=== PATIENT | male | born 2000 | race African-American/Black ===

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

== ENCOUNTER 2019-01-08 20:31 | Emergency (ER) | payer BC ==
[~2019-01-08] VITALS: Ht 175.3 cm; Wt 81.7 kg
[2019-01-08] MEDS ORDERED: TESSALON PERLE100 MG PO (22:02)
[2019-01-08 22:38] VITALS: BP 138/76
== END 2019-01-08 22:35 | disposition home or self-care (01) ==
LOC: ER 20:31
DX: J06.9 Acute upper respiratory infection, unspecified (principal)

== ENCOUNTER 2019-02-06 18:06 | Emergency (ER) | payer BC ==
[~2019-02-06] VITALS: Ht 175.3 cm; Wt 81.7 kg
[2019-02-06 19:40] VITALS: BP 130/91
== END 2019-02-06 19:40 | disposition home or self-care (01) ==
LOC: ER 18:06
DX: H92.02 Otalgia, left ear (principal)

== ENCOUNTER 2019-02-10 02:27 | Emergency (ER) | payer BC ==
[~2019-02-10] VITALS: Ht 175.3 cm; Wt 81.7 kg
[2019-02-10] MEDS ORDERED: MOBIC15 MG PO (03:25)
[2019-02-10 04:40] VITALS: BP 146/89
== END 2019-02-10 04:41 | disposition home or self-care (01) ==
LOC: ER 02:27
DX: H92.02 Otalgia, left ear (principal)

== ENCOUNTER 2019-07-13 16:26 | Emergency (ER) | payer BC ==
[~2019-07-13] VITALS: Ht 175.3 cm; Wt 83.9 kg
[~2019-07-13 16:26] MED LIST changes: +MOBIC15 MG PO
[2019-07-13] MEDS ORDERED: AMOXICILLIN 50500 MG PO (16:54)
[2019-07-13 17:18] VITALS: BP 134/71
== END 2019-07-13 17:19 | disposition home or self-care (01) ==
LOC: ER 16:26
DX: H66.91 Otitis media, unspecified, right ear (principal); H72.91 Unspecified perforation of tympanic membrane, right ear